=== PATIENT | female | born 2000 | race Caucasian/White ===

== ENCOUNTER 2022-01-11 14:07 | Observation (INO) | payer BC, SELFPAY ==
[2022-01-11 14:38] VITALS: BMI 19.1
[2022-01-11] MEDS ORDERED: Fentanyl 100 MCG/2 ML VIAL ONE (15:48)
[2022-01-11 15:52] LABS: #Lymphocytes 1.3 thou/uL (1.20-3.40); #Monocytes 0.6 thou/uL (0.11-0.59); #Neutrophils 6.2 thou/uL (1.40-6.50); %Basophils 0.5 % (0.0-1.0); %Eosinophils 0.4 % (0.0-10.0); %Lymphocytes 15.8 % (28.0-48.0); %Monocytes 6.9 % (0.0-4.0); %Neutrophils 76.4 % (31.0-61.0); Mean Corpuscular HGB CONC 29.4 g/dL (32.0-36.0); Mean Corpuscular Hemoglobin 19.4 pg (25.0-35.0); Mean Platelet Volume 10.2 fL (7.4-10.4); Platelet Count 273 thou/uL (130-400); RBC Distribution Width 15.8 % (11.5-14.5); Red Blood Cell (RBC) Count 3.62 mill/uL (4.00-5.20); White Blood Cell (WBC) Count 8.1 thou/uL (4.8-10.8)
[2022-01-11] MEDS ORDERED: Midazolam HCl 5 mg/5 ml Vial ONE (16:05)
[2022-01-11] MEDS ORDERED: fentaNYL Citrate/PF 100 MCG/2 ML SYRINGE ONE (16:05)
[2022-01-11] MEDS ORDERED: Bupivacaine/Epinephrine 0.25% 30 ML VIAL ONE (16:06)
[2022-01-11] MEDS ORDERED: Bupivacaine HCl 0.5%/Epinephrine 1:200,000/PF 30 ml Vial ONE (16:06)
[2022-01-11 16:09] LABS: Hypochromia SLIGHT = 6-15 cells (100X) (0-5/hpf); MDiff Complete? YES; Microcytosis SLIGHT = 6-15 cells (100X) (0-5/hpf); Ovalocytes SLIGHT = 2-5 cells (100X) (0-1/hpf); Platelet Morphology Comment Appears Adequate; Polychromasia SLIGHT = 2-3 cells (100X) (0-2/hpf)
[2022-01-11] MEDS ORDERED: cefOXitin 2 GM VIAL ONE (16:11)
[2022-01-11] MEDS ORDERED: Sodium Chloride 0.9% 100 ML ONE (16:11)
[2022-01-11] MEDS ORDERED: Succinylcholine 200 MG/10 ml SYRINGE FS ONE (16:38)
[2022-01-11] MEDS ORDERED: Rocuronium Bromide 10 MG/ML (10ML VIAL) ONE (16:38)
[2022-01-11] MEDS ORDERED: Ondansetron PF 4 MG/2 ML Vial ONE (16:38)
[2022-01-11] MEDS ORDERED: Dexamethasone 20 MG/5 ML VIAL ONE (16:38)
[2022-01-11] MEDS ORDERED: PROPOFOL 200 MG/20 ML VIAL ONE (16:38)
[2022-01-11] MEDS ORDERED: Ketorolac Tromethamine 30 MG/ML VIAL ONE (16:38)
[2022-01-11] MEDS ORDERED: hydrALAZINE 20 MG/ML VIAL SLOW IVP PRN (17:09)
[2022-01-11] MEDS ORDERED: Promethazine HCl 25 MG/ML VIAL IM PRN ×2 (17:09→17:20)
[2022-01-11] MEDS ORDERED: Ondansetron PF 4 MG/2 ML Vial IVP PRN (17:09)
[2022-01-11] MEDS ORDERED: Ibuprofen 600 MG TAB PO PRN (17:09)
[2022-01-11] MEDS ORDERED: Acetaminophen 325 MG TAB PO PRN (17:09)
[2022-01-11] MEDS ORDERED: Dextrose 5% in Water 1,000 ML IV PRN (17:09)
[2022-01-11] MEDS ORDERED: Dextrose 50% Abboject 50 ML SYRINGE SLOW IVP PRN (17:09)
[2022-01-11] MEDS ORDERED: D5 1/2 NS w/20 mEq KCL 1,000 ML IV SCH (17:15)
[2022-01-11] MEDS ORDERED: Meperidine HCl/PF 25 MG/ML VIAL SLOW IVP PRN (17:20)
[2022-01-11] MEDS ORDERED: Ondansetron HCl/PF 4 MG/2 ML Vial IVP PRN (17:20)
[2022-01-11] MEDS ORDERED: Promethazine HCl 25 MG/ML VIAL IVPB PRN (17:20)
[2022-01-11] MEDS ORDERED: HYDROmorphone 2 MG/ML VIAL SLOW IVP PRN (17:20)
[2022-01-11] MEDS ORDERED: FENTANYL 50 MCG/ML VIAL 50 MCG/ML VIAL SLOW IVP PRN (17:28)
[2022-01-11] MEDS ORDERED: FENTANYL 50 MCG/ML VIAL 50 MCG/ML VIAL ONE (17:39)
[2022-01-11] MEDS: HYDROcodone/Acetaminophen 7.5/325 mg Tablet PO PRN (18:41)
[2022-01-11] MEDS: Famotidine 20 MG TAB PO SCH (20:02)
[2022-01-11] MEDS ORDERED: FLU VACC QS2022-23(6MOS UP)/PF 60 MCG/0.5 ML SYRINGE IM ONE (20:30)
[2022-01-11] MEDS ORDERED: Ketorolac Tromethamine 30 MG/ML VIAL IVP PRN (21:15)
[2022-01-11] MEDS: FENTANYL 50 MCG/ML VIAL 50 MCG/ML VIAL SLOW IVP PRN ×2 (21:42→23:47)
[2022-01-11] MEDS: Famotidine/PF 20 mg/2ml Vial SLOW IVP SCH (22:09)
[2022-01-12] MEDS: HYDROcodone/Acetaminophen 7.5/325 mg Tablet PO PRN ×2 (01:13→08:15)
[2022-01-12] MEDS: cefOXitin Sodium 1 GM in Sodium Chloride 0.9% 100 ML IVPB SCH ×2 (01:14→09:12)
[2022-01-12] MEDS: FENTANYL 50 MCG/ML VIAL 50 MCG/ML VIAL SLOW IVP PRN ×2 (02:48→06:10)
[2022-01-12 06:09] LABS: #Lymphocytes 1.3 thou/uL (1.20-3.40); #Monocytes 0.5 thou/uL (0.11-0.59); #Neutrophils 10.5 thou/uL (1.40-6.50); %Basophils 0.1 % (0.0-1.0); %Eosinophils 0.2 % (0.0-10.0); %Lymphocytes 10.4 % (28.0-48.0); %Monocytes 3.7 % (0.0-4.0); %Neutrophils 85.6 % (31.0-61.0); Hemoglobin 8.5 g/dL (12.0-16.0); Mean Corpuscular HGB CONC 28.9 g/dL (32.0-36.0); Mean Corpuscular Hemoglobin 19.3 pg (25.0-35.0); Mean Corpuscular Volume 66.7 fl (78.0-98.0); Mean Platelet Volume 10.4 fL (7.4-10.4); Platelet Count 354 thou/uL (130-400); RBC Distribution Width 16.1 % (11.5-14.5); Red Blood Cell (RBC) Count 4.39 mill/uL (4.00-5.20); White Blood Cell (WBC) Count 12.2 thou/uL (4.8-10.8)
[2022-01-12] MEDS: Famotidine/PF 20 mg/2ml Vial SLOW IVP SCH (07:32)
[2022-01-12] MEDS: Famotidine 20 MG TAB PO SCH (08:15)
[2022-01-12 10:13] VITALS: BP 104/66; TEMP 98.3
== END 2022-01-12 11:50 | disposition home or self-care (01) ==
LOC: SDC 14:07 → SURG A 18:24
PROVIDERS: ADMIT Surgery; ATTEND Surgery
PROC: 0DTJ4ZZ Resection of Appendix, Percutaneous Endoscopic Approach (ICD-10-PCS; principal; 2022-01-11)
DX: K35.80 Unspecified acute appendicitis (principal); D64.9 Anemia, unspecified; Z88.5 Allergy status to narcotic agent
CPT/HCPCS: 36415; 85025; 86850; 86900; 86901; 88304; 96374; 96375; 96376; A4649; C1776; G0378; J0694; J1100; J1885; J2250; J2405; J2704; J3010; J3480; J3490